=== PATIENT | female | born 1970 | race Caucasian/White ===

== ENCOUNTER → 2018-05-06 | Outpatient (CLI) | payer BC | LOC: COL.RAD 10:24 | DX: R93.8 Abnormal findings on diagnostic imaging of other specified body structures (principal) ==

== ENCOUNTER → 2018-12-15 | Outpatient (CLI) | payer BC ==
[2018-12-15 16:38] LABS: CHOLESTEROL RISK RATIO 5.2
== END ==
LOC: ZCOL.LAB 16:05
PROVIDERS: Family Medicine
DX: Z13.220 Encounter for screening for lipoid disorders (principal)

== ENCOUNTER → 2019-03-08 | Outpatient (CLI) | payer BC | LOC: MC.RAD 07:28 | DX: Z12.31 Encounter for screening mammogram for malignant neoplasm of breast (principal) ==

== ENCOUNTER → 2019-09-12 | Outpatient (CLI) | payer BC ==
[2019-09-12 18:36] LABS: ALBUMIN 4.2 gm/dL (3.5-5.0); BILIRUBIN,TOTAL 0.3 mg/dL (0.0-1.0); CALCIUM 9.5 mg/dL (8.4-10.2); CHOLESTEROL RISK RATIO 4.4; CREATININE, serum 0.72 (0.52-1.25); POTASSIUM 4.3 mmol/L (3.4-5.0); TOTAL PROTEIN 6.7 gm/dL (6.4-8.2)
[2019-09-12 18:40] LABS: BASO % 0.4 % (0.0-2.0); EOS # 0.2 (0.0-0.7); EOS % 2.4 % (0-4.0); GRAN # 4.8 (1.4-6.5); GRAN % 53.5 % (42.2-75.2); HEMATOCRIT 45.4 % (37.0-47.0); HEMOGLOBIN 14.8 g/dl (12.5-16.0); LYMPH # 3.3 (1.2-3.4); LYMPH % 36.4 % (20.0-51.0); MEAN CELL VOLUME 89 fl (80.0-100.0); MEAN CORPUSCULAR HEMOGLOBIN 29 pg (27.0-31.0); MEAN CORPUSCULAR HGB CONC 33 g/dl (33.0-37.0); MEAN PLATELET VOLUME 10.9 fl (7.4-10.4); MONO # 0.6 (0.1-0.6); MONO % 6.7 % (1.7-9.3); PLATELET COUNT 306 K/mm3 (130-400); RED BLOOD COUNT 5.09 M/mm3 (4.10-5.30); REDCELL DISTRIBUTION WIDTH-CV 13.5 % (11.5-14.5)
[2019-09-12 19:05] LABS: THYROID STIMULATING HORMONE 2.44 uIU/mL (0.465-4.680)
== END ==
LOC: ZCOL.LAB 16:18
PROVIDERS: Family Medicine
DX: E03.9 Hypothyroidism, unspecified (principal); E78.5 Hyperlipidemia, unspecified; E55.9 Vitamin D deficiency, unspecified

== ENCOUNTER → 2020-03-09 | Outpatient (CLI) | payer BC | LOC: MC.RAD 06:51 | DX: Z12.31 Encounter for screening mammogram for malignant neoplasm of breast (principal) ==

== ENCOUNTER → 2021-03-11 | Outpatient (CLI) | payer BC | LOC: MC.RAD 07:18 | DX: Z12.31 Encounter for screening mammogram for malignant neoplasm of breast (principal) ==

== ENCOUNTER → 2022-03-12 | Outpatient (CLI) | payer BC ==
[~2022-03-12] MED LIST: ALDACTONE50 MG PO; ASPI325T6 PO; CELEBREX 200MG200 MG PO; CEPHALEXIN500 M1 PO; CLIMARA0.025 MG/2 TD; CLINDAGEL 40 ML40 ML TOP; LIPITOR 40MG TA40 MG PO; NORCO 325 MG-51 TAB PO; PAMELOR 25MG25 MG PO; PATADAY 2.5 ML2.5 ML OU; PRIL40 PO; RYBELSUS7 MG PO; TIROSINT50 MC1 PO; TOPROL XL100 MG PO; VALTREX1 GM PO
== END ==
LOC: MC.RAD 07:05
DX: Z12.31 Encounter for screening mammogram for malignant neoplasm of breast (principal)

== ENCOUNTER 2022-03-19 05:35 | Day surgery (SDC) | payer BC ==
[2022-03-19] VITALS (11 sets, daily range): BP systolic 111–129; BP diastolic 39–83; PULSE 77–105; TEMP 17
[~2022-03-19] VITALS: Ht 162.6 cm; Wt 100.9 kg
[2022-03-19] MEDS ORDERED: PRIL40 PO (07:36)
[2022-03-19] MEDS ORDERED: TOPROL XL100 MG PO (07:37)
[2022-03-19] MEDS ORDERED: LIPITOR 40MG TA40 MG PO (07:38)
[2022-03-19] MEDS ORDERED: TIROSINT50 MC1 PO (07:39)
[2022-03-19] MEDS ORDERED: RYBELSUS7 MG PO (07:40)
[2022-03-19] MEDS ORDERED: CLIMARA0.025 MG/2 TD (07:41)
[2022-03-19] MEDS ORDERED: PAMELOR 25MG25 MG PO (07:42)
[2022-03-19] MEDS ORDERED: ALDACTONE50 MG PO (07:43)
[2022-03-19] MEDS ORDERED: PATADAY 2.5 ML2.5 ML OU (07:48)
[2022-03-19] MEDS ORDERED: VALTREX1 GM PO (07:51)
[2022-03-19] MEDS ORDERED: CLINDAGEL 40 ML40 ML TOP (07:52)
--- NOTE | 2022-03-19 11:13 | NUR ---
PT TO ROOM 328 PER BED WITH REPORT FROM MANUELA SULLIVAN @[id number]. PT IS A/O X3 LUNGS CTA, BOWEL SOUNDS PRESENT PEDAL PULSES PALPABLE. AQUACEL OVER INCISION WITH ROULA WRAP TO LEFT KNEE. IV TO PUMP PER ORDERS. CONTACTED DR ARIAS FOR HOSPITALIST CONSULT.
--- NOTE | 2022-03-19 11:27 | NUR ---
PT UP TO BR WITH ASSIST X2. VOIDED AND RETURNED TO BED.
--- NOTE | 2022-03-19 13:16 | NUR ---
PT UP TO BR VOIDED AND RETURNED TO BED.
--- NOTE | 2022-03-20 00:02 | NUR ---
PATIENT IN BED ON ROOM ENTRY. ALERT AND ORIENTED. DENIES PAIN AND STATES THAT HER BLOCK IS STILL WORKING GREAT. SOME FEELING NOTED TO TOES AND HEELS BUT STATES IT IS TINGLY. AQUACELL AND ROULA TO L KNEE, LEG ELEVATED ON PILLOWS, ICE APPLIED. HS MEDS PER EMAR. PATIENT UP OUT OF BED AND AMBULATED WITH STANDBY ASSIST AND USE OF WALKER TO BATHROOM AND AROUND ROOM WITHOUT ISSUE.
[2022-03-20 04:39] VITALS: BP 105/43; PULSE 100; TEMP 98
[2022-03-20 06:55] LABS: CALCIUM 8.5 mg/dL (8.4-10.2); CREATININE, serum 0.81 mg/dL (0.57-1.11); POTASSIUM 4.1 mmol/L (3.5-4.5)
[2022-03-20 08:06] VITALS: BP 119/59; PULSE 72; TEMP 98.2
[2022-03-20] MEDS ORDERED: ASPI325T6 PO (08:55)
[2022-03-20] MEDS ORDERED: CEPHALEXIN500 M1 PO (08:57)
[2022-03-20] MEDS ORDERED: CELEBREX 200MG200 MG PO (09:02)
[2022-03-20] MEDS ORDERED: NORCO 325 MG-51 TAB PO (09:20)
--- NOTE | 2022-03-20 10:04 | NUR ---
PT A&O X 4, PT ABLE TO MAKE NEEDS KNOWN, PT UP TO CHAIR THIS AM, REPORTS PAIN IS STILL WELL CONTROLLED WITH NERVE BLOCK AND MEDICATIONS, VSS, FALL PRECAUTIONS IN PLACE, CALL LIGHT IN REACH, VISITOR AT BEDSIDE
--- NOTE | 2022-03-20 12:59 | NUR ---
Initial visit; Very pleasant, outgoing nice person who seems to care a lot about others. Patient says she is doing well although the pain block hadn't worn off yet either. She was looking forward to being discharged today. Furnace Room Supervisor remarked about her optimism and her obvious high energy. She and her laughed and appeared to enjoy Furnace Room Supervisor's observation that she is normally a busy person who enjoys life. They thanked Furnace Room Supervisor for visit.
== END 2022-03-20 14:07 ==
LOC: SDCO 05:35 → SURG 10:30 → SDCO 03-20 14:07
PROVIDERS: Orthopaedic Surgery
DX: M17.12 Unilateral primary osteoarthritis, left knee (principal); Z79.899 Other long term (current) drug therapy; E03.9 Hypothyroidism, unspecified; Z79.890 Hormone replacement therapy
CPT/HCPCS: OP; A9284; C1713; C1776; J0690; J1100; J1580; J1885; J2250; J2270; J2405; J2704; J2765; J2795; J3010; J7030; J7120

== ENCOUNTER → 2022-09-02 | Outpatient (CLI) | payer BC | LOC: COL.RAD 07:17 | DX: M71.20 Synovial cyst of popliteal space [Baker], unspecified knee (principal) ==

== ENCOUNTER → 2024-03-25 | Outpatient (CLI) | payer BC | LOC: MC.RAD 05:15 | DX: Z12.31 Encounter for screening mammogram for malignant neoplasm of breast (principal) ==